=== PATIENT | male | born 1970 | race Hispanic/Latino ===

== ENCOUNTER 2022-04-28 00:04 | Emergency (ER) | payer OTHER ==
[~2022-04-28] VITALS: Ht 188 cm; Wt 95.3 kg
[2022-04-28] MEDS ORDERED: IBUP-2070 PO (08:08)
[2022-04-28] MEDS ORDERED: ACET-2079 PO (08:08)
[2022-04-28] MEDS: HYDROCODONE/ACETAMINOPHEN 5/325 MG TAB PO ONE ×2 (08:30→08:31)
[2022-04-28] MEDS ORDERED: IBUPROFEN 600 MG TABLET PO ONE (08:30)
[2022-04-28 08:35] VITALS: BP 139/84
== END 2022-04-28 09:02 | disposition home or self-care (01) ==
LOC: EDH 00:04
DX: S62.396A Other fracture of fifth metacarpal bone, right hand, initial encounter for closed fracture (principal); W22.01XA Walked into wall, initial encounter; Y93.89 Activity, other specified; Y92.89 Other specified places as the place of occurrence of the external cause; Y99.8 Other external cause status
CPT/HCPCS: 29125; 73130